=== PATIENT | male | born 1960 | race Caucasian/White ===

== ENCOUNTER 2019-09-25 21:38 | Emergency (ER) | payer MEDICAID ==
[~2019-09-25] VITALS: Ht 170.2 cm; Wt 63.0 kg
[2019-09-25 21:45] VITALS: BP 149/92
[2019-09-25] MEDS ORDERED: ALBUTEROL 0.083% 2.5 MG/3 ML NEBU INH ONE (21:55)
[2019-09-25] MEDS ORDERED: predniSONE 20 MG TAB PO ONE (21:55)
[2019-09-25] MEDS ORDERED: IPRATROPIUM 0.02% 0.5 MG/2.5 ML NEBU INH ONE (21:55)
--- NOTE | 2019-09-25 21:57 | NUR ---
PT MOVED TO ER BED 10
--- NOTE | 2019-09-25 22:01 | NUR ---
Respiratory Therapist at bedside for respiratory intervention.
--- NOTE | 2019-09-25 22:11 | NUR ---
59 Y/O MALE PRESENTS TO ER WITH C/O SOB X 3 WEEKS. 0/10 PAIN. DENIES COUGH, BUT HAS WHITE PHLEGM PRODUCTION THROUGHOUT DAY AND NIGHT. HAS PMH OF ASTHMA, COPD. FORMER SMOKER " I USED TO SMOKE A LOT". STOP SMOKING X 1 YEAR AGO. AFEBRILE, DENIES NAUSEA, VOMITING, DIARRHEA. WHEEZING THROUGHTOUT BILATERAL LUNG BASES. ACCESSORY MUSCLE USE NOTED. R/R EQUAL. 02% AT 97 ON ROOM AIR. SIDE RAIL X1, WILL CONTINUE TO MONITOR. PMH: ASTHMA; COPD NKDA
[2019-09-25 23:12] VITALS: BP 149/92
--- NOTE | 2019-09-25 23:13 | NUR ---
Patient discharged with v/s stable. Written and verbal after care instructions given and explained. Patient alert, oriented and verbalized understanding of instructions. Ambulatory with steady gait. All questions addressed prior to discharge. ID band removed. Patient advised to follow up with PMD. Rx of ALBUTEROL; QVAR; PREDNISONE given. Patient educated on indication of medication including possible reaction and side effects. Opportunity to ask questions provided and answered.
== END 2019-09-25 23:13 | disposition home or self-care (01) ==
LOC: EDSEX 21:38 → MED 21:38
DX: J44.1 Chronic obstructive pulmonary disease with (acute) exacerbation (principal)
CPT/HCPCS: 94640; 99283; J7512; J7613; J7644